=== PATIENT | male | born 1950 | race Caucasian/White ===

== ENCOUNTER → 2018-01-03 | Outpatient (CLI) | payer MEDICARE ==
--- NOTE | 2018-01-03 18:52 | RADIOLOGY IMAGING REPORT ---
FACILITY: [facility] PATIENT NAME: Gilson Vang : 1950 MR: [id number] V: [id number] EXAM DATE: ORDERING PHYSICIAN: ROXY ARMANDO TECHNOLOGIST: Location: [facility] Patient: Gilson Vang : 1950 Visit/Account:[id number] Date of Sevice: 01/03/2018 RIBS LEFT INDICATION: Left rib pain COMPARISON: None available FINDINGS: Heart size within normal limits. There is no focal infiltrate or lobar consolidation. There is no pneumothorax or pleural effusion. No rib abnormalities identified. IMPRESSION: 1. Negative left rib series Report Dictated By: Juan Mccall at 01/03/2018 6:42 PM Report E-Signed By: Juan Mccall at 01/03/2018 6:48 PM WSN:[id number]
== END ==
LOC: RAD 15:53
PROVIDERS: ATTEND Family Medicine
DX: M89.8X8 Other specified disorders of bone, other site (principal)
CPT/HCPCS: 71100

== ENCOUNTER → 2018-11-23 | Outpatient (CLI) | payer MEDICARE ==
--- NOTE | 2018-11-23 16:20 | RADIOLOGY IMAGING REPORT ---
FACILITY: [facility] [place] PATIENT NAME: Gilson Vang : 1950 MR: [id number] V: [id number] EXAM DATE: ORDERING PHYSICIAN: ROXY ARMANDO TECHNOLOGIST: Location: [facility] Patient: iGlson Vang : 1950 Visit/Account:[id number] Date of Sevice: 11/23/2018 Lumbar spine Indication: Back pain. Comparison: None available FINDINGS: 3 views of the lumbar spine were obtained. There are 5 lumbar type vertebral bodies. There is no acute osseous or acute alignment abnormality. 4 mm retrolisthesis of L2 on L3 and L5 on S1. The vertebral body heights appear well-maintained. Moderate degenerative disc disease at L5-S1 with disc space loss, endplate sclerosis, and marginal os teophytes. Mild/moderate additional multilevel degenerative disc disease and facet arthropathy. Partial visualization of left hip arthroplasty. IMPRESSION: 1. No acute osseous or acute alignment abnormality of the lumbar spine. 2. Grade 1 retrolisthesis of L2 on L3 and L5 on S1. 3. Degenerative changes within the lumbar spine, as above. Report Dictated By: Jasvir Doll MD at 11/23/2018 4:06 PM Report E-Signed By: Jasvir Doll MD at 11/23/2018 4:14 PM WSN:[email or web address]
--- NOTE | 2018-11-23 16:23 | RADIOLOGY IMAGING REPORT ---
FACILITY: [facility] PATIENT NAME: Gilson Vang : 1950 MR: [id number] V: [id number] EXAM DATE: ORDERING PHYSICIAN: ROXY ARMANDO TECHNOLOGIST: Location: [facility] Patient: Gilson Vang : 1950 Visit/Account:[id number] Date of Sevice: 11/23/2018 HIP LEFT Indication: Low back pain and left hip pain Comparison: None available Findings: Postoperative changes from left hip arthroplasty. There is periprosthetic lucency along the proximal aspect of the femoral component which is favored related to normal postoperative change. There is n o additional periprostatic lucency. No acute osseous abnormality identified. IMPRESSION: Left hip arthroplasty without gross complication. Note is made of periprosthetic lucency along the p roximal aspect of the femoral component which is favored related to normal postoperative change. No periprosthetic lucency along the mid/distal femoral component to suggest loosening. Report Dictated By: Jasvir Doll MD at 11/23/2018 4:14 PM Report E-Signed By: Jasvir Doll MD at 11/23/2018 4:19 PM WSN:[email or web address]
== END ==
LOC: RAD 15:13
PROVIDERS: ATTEND Family Medicine
DX: M54.5 Low back pain (principal); M25.552 Pain in left hip; M43.16 Spondylolisthesis, lumbar region; Z96.642 Presence of left artificial hip joint
CPT/HCPCS: 72100